=== PATIENT | female | born 1955 ===

== ENCOUNTER 2021-07-11 06:31 | Inpatient (IN) ==
[~2021-07-11 06:31] MED LIST: Buffered Lidocaine 1% SYRIN 1 ml INTRADERM ONE; Lactated Ringers 1000 ml BAG 1,000 ML IV SCH
[2021-07-11] MEDS ORDERED: Clindamycin 900 MG/D5W BAG 900 MG/50 ML BAG IVPB ONE (06:56)
[2021-07-11] MEDS ORDERED: Propofol 10 MG/ML 20 ML BTL ONE ×2 (06:57→09:50)
[2021-07-11] MEDS ORDERED: Midazolam 2 mg/2 ml VIAL 1 mg/ml 2 ml VIAL (2 mg) ONE ×2 (06:57→08:35)
[2021-07-11] MEDS ORDERED: Lidocaine 2% PF 5 ML VIAL ONE (06:57)
[2021-07-11] MEDS ORDERED: Ketamine HCL 50 mg/ml 10 ml VIAL (500 MG) ONE (07:00)
[2021-07-11] MEDS ORDERED: Ropivacaine 5 MG/ML 20 ML VIAL 0.5% (100 MG) ONE (07:21)
[2021-07-11] MEDS ORDERED: Ondansetron 4 mg VIAL 2 MG/ML 2 ml VIAL ONE (08:50)
[2021-07-11] MEDS ORDERED: Dexamethasone IV 4 MG/ML VIAL 1 ml VIAL ONE (08:50)
[2021-07-11] MEDS ORDERED: Glycopyrrolate IV 0.2 MG/ML 1 ML VIAL ONE (09:04)
[2021-07-11] MEDS ORDERED: fentaNYL 100 mcg/2 ml 50 MCG/ML VIAL ONE (09:25)
[2021-07-11] MEDS ORDERED: Magnesium Hydroxide LIQ 30 ML UDC PO PRN (09:34)
[2021-07-11] MEDS ORDERED: Lactulose 30 ml UDC PO PRN (09:34)
[2021-07-11] MEDS ORDERED: diPHENhydraMINE 25 mg TAB PO PRN (09:34)
[2021-07-11] MEDS ORDERED: Ondansetron ODT 4 mg TAB 4 MG TAB PO PRN (09:34)
[2021-07-11] MEDS ORDERED: diPHENhydraMINE IV 50 MG/ML 1 ml VIAL (BENADRYL) IV PRN (09:34)
[2021-07-11] MEDS ORDERED: Morphine 2 MG/ML SYRINGE IV PRN (09:34)
[2021-07-11] MEDS ORDERED: Ondansetron 4 mg VIAL 2 MG/ML 2 ml VIAL IV PRN (09:34)
[2021-07-11] MEDS ORDERED: Lactated Ringers 1000 ml BAG 1,000 ML IV SCH (10:00)
[2021-07-11] MEDS ORDERED: HYDROmorphone 1 MG/1 ML SYRINGE ONE (10:37)
[2021-07-11] MEDS: Clindamycin 600 MG/D5W BAG 600 MG/50 ML BAG IV SCH ×2 (15:36→23:33)
[2021-07-11] MEDS: Magnesium Hydroxide LIQ 30 ML UDC PO SCH (20:34)
[2021-07-12 06:17] LABS: Hematocrit 34 % (35-47); Hemoglobin 11.2 g/dL (12.0-16.0); Mean Platelet Volume 6.6 fL (7.4-10.4); Platelet Count 380 10^3/uL (150-450)
[2021-07-12 06:37] LABS: Calcium 8.7 mg/dL (8.6-10.3); Potassium 3.9 mmol/L (3.5-5.0)
[2021-07-12] MEDS: Clindamycin 600 MG/D5W BAG 600 MG/50 ML BAG IV SCH (07:40)
[2021-07-12] MEDS ORDERED: Vitamin THERAPEUTIC TAB PO SCH (09:00)
[2021-07-12] MEDS ORDERED: DULoxetine DR 60 mg CAP PO SCH (09:00)
[2021-07-12] MEDS: Magnesium Hydroxide LIQ 30 ML UDC PO SCH (09:24)
[2021-07-12 12:39] VITALS: BP 138/66
== END 2021-07-12 15:25 | disposition home or self-care (01) | DRG 470 ==
LOC: AA 06:31 → SSU 12:15
PROVIDERS: ADMIT Orthopaedic Surgery Adult Reconstructive Orthopaedic Surgery; ATTEND Orthopaedic Surgery Adult Reconstructive Orthopaedic Surgery